=== PATIENT | female | born 1990 | race African-American/Black ===

== ENCOUNTER 2018-03-03 18:45 | Emergency (ER) | payer OTHER ==
[~2018-03-03] VITALS: Ht 165.1 cm; Wt 114.3 kg
[2018-03-03] MEDS ORDERED: DIFLUCAN200 MG PO (19:38)
[2018-03-03] MEDS ORDERED: ZYRTEC10 M2 PO (19:38)
== END 2018-03-03 20:08 | disposition home or self-care (01) ==
LOC: ER 18:45
DX: B36.0 Pityriasis versicolor (principal); Z98.890 Other specified postprocedural states; Z87.891 Personal history of nicotine dependence